=== PATIENT | male | born 1965 | race Caucasian/White ===

== ENCOUNTER 2019-03-05 23:36 | Inpatient (IN) | payer OTHER ==
[~2019-03-05] VITALS: Ht 172.7 cm; Wt 103.9 kg
[~2019-03-05 23:36] MED LIST: DIVA500T52 PO; METF-960 PO; OLAN15TA5 PO
[2019-03-06] MEDS ORDERED: IPRATROPIUM BROMIDE 0.5 MG/2.5 ML NEB SOLUTION NEB ONE (01:00)
[2019-03-06] MEDS ORDERED: ASPIRIN 325 MG TABLET PO ONE (01:00)
[2019-03-06] MEDS ORDERED: MethylPREDNISolone SOD SUCC 125 MG/2 ML VIAL IVP ONE (01:00)
[2019-03-06] MEDS ORDERED: ALBUTEROL SULFATE 2.5 MG/0.5 ML NEB SOLUTION NEB ONE (01:00)
[2019-03-06 01:18] LABS: ABG A-A DIFF O2 34.8 mmHg (10-20.0); ABG HCO3 29.4 mmol/L (22.0-26.0); ABG METHEMOGLOBIN 0.3 % (0.0-1.5); ABG OXYGEN CONTENT 18.1 mL/dL (15.0-23.0); ABG OXYGEN SATURATION 87.7 % (95.0-98.0); ABG OXYHEMOGLOBIN 74.6 % (94.0-100.0); ABG PCO2 57 mmHg (35-45); ABG PH 7.379 (7.35-7.450); ABG TOTAL HEMOGLOBIN 17.3 G/dL (12.0-18.0); PO2, ARTERIAL BG 46.2 mmHg (84.0-92.0); SOURCE, BLOOD GAS ARTERIAL; TEMPERATURE, FAHRENHEIT, BG 98.6 FAHREN (96.0-98.6)
[2019-03-06 01:19] LABS: ABG CARBOXYHEMOGLOBIN 14.6 % (0.0-1.5); O2 DEVICE,BLOOD GAS ROOM AIR (ROOM AIR); SITE, BLOOD GAS RT RADIAL
[2019-03-06 01:30] LABS: BASOPHILS % (AUTO) 0.5 % (0.0-2.0); EOSINOPHILS % (AUTO) 0.5 % (1.0-6.0); HEMATOCRIT 51.5 % (41-53); LYMPHOCYTES # (AUTO) 1.1 K/uL (1.0-4.8); MEAN CORPUSCULAR HEMOGLOBIN 30.5 pg (26.0-34.0); MEAN CORPUSCULAR HGB CONC 33.1 G/dL (31.0-37.0); MEAN CORPUSCULAR VOLUME 92 fL (80-100); MONOCYTES # (AUTO) 0.8 K/uL (0.1-1.0); MONOCYTES % (AUTO) 9.4 % (2.0-9.0); NEUTROPHILS # (AUTO) 6.6 K/uL (1.8-7.7); NEUTROPHILS % (AUTO) 76.6 % (40.0-70.0); PLATELET COUNT (AUTO) 230 K/uL (150-450); RED BLOOD CELL COUNT(AUTO) 5.58 MIL/uL (4.50-5.90); RED CELL DISTRIBUTION WIDTH 17.7 % (11.5-14.5)
[2019-03-06 01:39] LABS: ANION GAP 0 mmol/L (8-16); CALCIUM, TOTAL 8.8 mg/dL (8.8-10.5); CARBON DIOXIDE 37 mmol/L (22-29); CHLORIDE 94 mmol/L (98-107); GLOMERULAR FILTR. RATE CALC > 60 mL/min (>60); GLUCOSE,RANDOM 97 mg/dL (70-110); POTASSIUM 4.1 mmol/L (3.5-5.1); SODIUM SERUM 131 mmol/L (136-145); UREA NITROGEN, BLOOD 3 mg/dL (7-18)
[2019-03-06] MEDS ORDERED: 0.9% SODIUM CHLORIDE 5 ML NEB SOLUTION NEB ONE (01:40)
[2019-03-06 01:47] LABS: LACTIC ACID 0.7 mmol/L (0.4-2.0)
[2019-03-06 01:52] LABS: B-TYPE NATRIURETIC PEPTIDE 88 pg/mL (0-100)
[2019-03-06 01:53] LABS: ALANINE AMINOTRANSFERASE 8 U/L (12-78); ALBUMIN 3.4 g/dL (3.4-5.0); ALKALINE PHOSPHATASE 84 U/L (46-116); ASPARTATE AMINOTRANSFERASE 10 U/L (15-37); BILIRUBIN,TOTAL 0.6 mg/dL (0.1-1.0); TOTAL PROTEIN, SERUM 7.3 g/dL (6.4-8.2)
[2019-03-06] MEDS: IPRATROPIUM BROMIDE 0.5 MG/2.5 ML NEB SOLUTION NEB SCH ×5 (03:00→22:36)
[2019-03-06] MEDS ORDERED: ONDANSETRON HCL 4 MG/2 ML VIAL IVP PRN ×2 (03:00→19:30)
[2019-03-06] MEDS: ALBUTEROL SULFATE 2.5 MG/0.5 ML NEB SOLUTION NEB SCH ×5 (03:00→22:37)
[2019-03-06] MEDS ORDERED: AZITHROMYCIN 500 MG/NS 250 ML IV ONE (03:00)
[2019-03-06] MEDS ORDERED: ACETAMINOPHEN 325 MG TABLET PO PRN ×2 (03:00→19:30)
[2019-03-06] MEDS ORDERED: 0.9% SODIUM CHLORIDE 10 ML SYRINGE IVP PRN (03:00)
[2019-03-06] MEDS ORDERED: OXYGEN THERAPY IH SCH (08:00)
[2019-03-06 08:26] VITALS: BP 147/107
[2019-03-06 08:30] VITALS: BP 147/107
[2019-03-06 12:05] VITALS: BP 152/80
[2019-03-06 16:09] VITALS: BP 144/76
[2019-03-06] MEDS ORDERED: ALBUTEROL SULFATE 2.5 MG/0.5 ML NEB SOLUTION NEB PRN (19:30)
[2019-03-06] MEDS ORDERED: MAGNESIUM HYDROXIDE SUSPENSION 30 ML UDCUP PO PRN (19:30)
[2019-03-06] MEDS ORDERED: MORPHINE SULFATE 2 MG/ML SYRINGE IVP PRN (19:30)
[2019-03-06] MEDS ORDERED: IPRATROPIUM BROMIDE 0.5 MG/2.5 ML NEB SOLUTION NEB PRN (19:30)
[2019-03-06] MEDS ORDERED: OxyCODONE HCL/ACETAMINOPHEN 5-325 MG TABLET PO PRN (19:30)
[2019-03-06] MEDS ORDERED: BISACODYL 10 MG RECTAL RECTAL SUPPOSITORY PR PRN (19:30)
[2019-03-06] MEDS ORDERED: ZOLPIDEM TARTRATE 5 MG TABLET PO PRN (19:30)
[2019-03-06 19:31] VITALS: BP 145/67
[2019-03-06] MEDS ORDERED: DEXTROSE 50%-WATER 25 GM/50 ML SYRINGE IVP PRN (20:30)
[2019-03-06] MEDS: DOCUSATE SODIUM 100 MG CAPSULE PO SCH (21:00)
[2019-03-06] MEDS: DIVALPROEX SODIUM 500 MG ER TABLET PO SCH (21:12)
[2019-03-06] MEDS: OLANZapine 10 MG RAPDIS TABLET PO SCH (21:12)
[2019-03-06 23:52] VITALS: BP 126/76
[2019-03-07] MEDS: HEPARIN SODIUM,PORCINE 5,000 UNITS/ML VIAL SQ SCH ×3 (00:13→15:37)
[2019-03-07] MEDS: MethylPREDNISolone SOD SUCC 125 MG/2 ML VIAL IVP SCH ×4 (00:13→19:02)
[2019-03-07] MEDS: ALBUTEROL SULFATE 2.5 MG/0.5 ML NEB SOLUTION NEB SCH ×6 (02:47→22:31)
[2019-03-07] MEDS: IPRATROPIUM BROMIDE 0.5 MG/2.5 ML NEB SOLUTION NEB SCH ×6 (02:47→22:31)
[2019-03-07 04:52] VITALS: BP 129/85
[2019-03-07 07:47] VITALS: BP 138/94
[2019-03-07] MEDS: DOCUSATE SODIUM 100 MG CAPSULE PO SCH ×2 (08:29→20:44)
[2019-03-07] MEDS: OLANZapine 10 MG RAPDIS TABLET PO SCH ×2 (08:29→20:44)
[2019-03-07] MEDS: PANTOPRAZOLE SODIUM 40 MG DR TABLET PO SCH (08:29)
[2019-03-07 11:34] VITALS: BP 122/64
[2019-03-07 19:59] VITALS: BP 140/76
[2019-03-07] MEDS: DIVALPROEX SODIUM 500 MG ER TABLET PO SCH (20:44)
[2019-03-07 23:04] VITALS: BP 125/73
[2019-03-08] MEDS: HEPARIN SODIUM,PORCINE 5,000 UNITS/ML VIAL SQ SCH ×4 (00:34→23:28)
[2019-03-08] MEDS: MethylPREDNISolone SOD SUCC 125 MG/2 ML VIAL IVP SCH ×5 (00:34→23:28)
[2019-03-08] MEDS: ALBUTEROL SULFATE 2.5 MG/0.5 ML NEB SOLUTION NEB SCH ×6 (03:00→22:39)
[2019-03-08] MEDS: IPRATROPIUM BROMIDE 0.5 MG/2.5 ML NEB SOLUTION NEB SCH ×6 (03:00→22:39)
[2019-03-08 04:56] VITALS: BP 146/86
[2019-03-08 06:05] LABS: GLUCOMETER DEV NAME(LOC) 5S.1; GLUCOSE,POINT OF CARE 268 MG/DL (70-110)
[2019-03-08] MEDS ORDERED: DEXTROSE 50%-WATER 25 GM/50 ML SYRINGE IVP PRN (06:15)
[2019-03-08] MEDS: INSULIN LISPRO 100 UNITS/ML SQ PRN ×4 (06:32→21:08)
[2019-03-08] MEDS: DOCUSATE SODIUM 100 MG CAPSULE PO SCH ×2 (07:52→20:09)
[2019-03-08] MEDS: OLANZapine 10 MG RAPDIS TABLET PO SCH ×2 (07:52→20:08)
[2019-03-08] MEDS: PANTOPRAZOLE SODIUM 40 MG DR TABLET PO SCH (07:52)
[2019-03-08 08:06] VITALS: BP 142/85
[2019-03-08 12:01] VITALS: BP 140/78
[2019-03-08 12:19] LABS: GLUCOMETER DEV NAME(LOC) 5S.1; GLUCOSE,POINT OF CARE 351 MG/DL (70-110)
[2019-03-08 17:01] VITALS: BP 140/89
[2019-03-08 19:00] LABS: ANION GAP 3 mmol/L (8-16); CALCIUM, TOTAL 8.6 mg/dL (8.8-10.5); CARBON DIOXIDE 34 mmol/L (22-29); CHLORIDE 92 mmol/L (98-107); CREATININE 0.82 mg/dL (0.60-1.30); GLOMERULAR FILTR. RATE CALC > 60 mL/min (>60); GLUCOSE,RANDOM 289 mg/dL (70-110); POTASSIUM 4.7 mmol/L (3.5-5.1); SODIUM SERUM 129 mmol/L (136-145); UREA NITROGEN, BLOOD 18 mg/dL (7-18)
[2019-03-08 19:06] LABS: ALANINE AMINOTRANSFERASE 9 U/L (12-78); ALBUMIN 2.9 g/dL (3.4-5.0); ALKALINE PHOSPHATASE 65 U/L (46-116); ASPARTATE AMINOTRANSFERASE 7 U/L (15-37); BILIRUBIN,TOTAL 0.5 mg/dL (0.1-1.0); TOTAL PROTEIN, SERUM 6.4 g/dL (6.4-8.2)
[2019-03-08 19:34] VITALS: BP 146/88
[2019-03-08] MEDS: DIVALPROEX SODIUM 500 MG ER TABLET PO SCH (20:09)
[2019-03-09 00:29] VITALS: BP 131/79
[2019-03-09] MEDS: IPRATROPIUM BROMIDE 0.5 MG/2.5 ML NEB SOLUTION NEB SCH ×4 (02:43→14:47)
[2019-03-09] MEDS: ALBUTEROL SULFATE 2.5 MG/0.5 ML NEB SOLUTION NEB SCH ×4 (02:43→14:47)
[2019-03-09 03:50] VITALS: BP 131/94
[2019-03-09 05:19] LABS: GLUCOMETER DEV NAME(LOC) 5N.1; GLUCOSE,POINT OF CARE 269 MG/DL (70-110)
[2019-03-09] MEDS: INSULIN LISPRO 100 UNITS/ML SQ PRN ×2 (05:31→11:34)
[2019-03-09] MEDS: MethylPREDNISolone SOD SUCC 125 MG/2 ML VIAL IVP SCH ×2 (05:31→11:31)
[2019-03-09 05:32] LABS: BASOPHILS % (AUTO) 0.1 % (0.0-2.0); EOSINOPHILS % (AUTO) 0 % (1.0-6.0); HEMATOCRIT 51.5 % (41-53); HEMOGLOBIN 16.9 g/dL (13.5-17.5); LYMPHOCYTES # (AUTO) 0.4 K/uL (1.0-4.8); LYMPHOCYTES % (AUTO) 3.4 % (22.0-44.0); MEAN CORPUSCULAR HEMOGLOBIN 30.4 pg (26.0-34.0); MEAN CORPUSCULAR HGB CONC 32.9 G/dL (31.0-37.0); MEAN CORPUSCULAR VOLUME 93 fL (80-100); MONOCYTES # (AUTO) 0.4 K/uL (0.1-1.0); MONOCYTES % (AUTO) 3.1 % (2.0-9.0); NEUTROPHILS # (AUTO) 10.9 K/uL (1.8-7.7); PLATELET COUNT (AUTO) 252 K/uL (150-450); RED BLOOD CELL COUNT(AUTO) 5.56 MIL/uL (4.50-5.90); RED CELL DISTRIBUTION WIDTH 17.1 % (11.5-14.5)
[2019-03-09 05:34] LABS: NEUTROPHILS % (AUTO) 93.4 % (40.0-70.0)
[2019-03-09 07:34] VITALS: BP 129/82
[2019-03-09] MEDS: PANTOPRAZOLE SODIUM 40 MG DR TABLET PO SCH (07:45)
[2019-03-09] MEDS: HEPARIN SODIUM,PORCINE 5,000 UNITS/ML VIAL SQ SCH (07:45)
[2019-03-09] MEDS: DOCUSATE SODIUM 100 MG CAPSULE PO SCH (07:46)
[2019-03-09] MEDS: OLANZapine 10 MG RAPDIS TABLET PO SCH (07:46)
[2019-03-09 07:49] LABS: GLUCOMETER DEV NAME(LOC) 5S.1; GLUCOSE,POINT OF CARE 233 MG/DL (70-110)
[2019-03-09 07:49] LABS: GLUCOMETER DEV NAME(LOC) 5S.1; GLUCOSE,POINT OF CARE 355 MG/DL (70-110)
[2019-03-09 12:10] VITALS: BP 146/86
[2019-03-09 14:20] LABS: GLUCOMETER DEV NAME(LOC) 5N.1; GLUCOSE,POINT OF CARE 400 MG/DL (70-110)
[2019-03-09 15:08] VITALS: BP 132/80
== END 2019-03-09 16:40 | disposition home or self-care (01) | DRG 140 ==
LOC: EMS 23:39 → 5N 03-06 05:55
PROVIDERS: ADMIT Hospitalist; ATTEND Hospitalist
DX: J44.1 Chronic obstructive pulmonary disease with (acute) exacerbation (principal); E66.01 Morbid (severe) obesity due to excess calories; F20.0 Paranoid schizophrenia; E87.1 Hypo-osmolality and hyponatremia; E66.9 Obesity, unspecified; E11.9 Type 2 diabetes mellitus without complications; I10 Essential (primary) hypertension; F17.200 Nicotine dependence, unspecified, uncomplicated; Z68.34 Body mass index [BMI] 34.0-34.9, adult; Z88.8 Allergy status to other drugs, medicaments and biological substances; Z79.899 Other long term (current) drug therapy
CPT/HCPCS: 36600; 82805; 83605; 87040; 93005; 94640; 96365; 96372; 96375; G0378; G0480; J0456; J1644; J2930

== ENCOUNTER 2021-09-03 13:04 | Emergency (ER) | payer OTHER ==
[~2021-09-03] VITALS: Ht 172.7 cm; Wt 90.9 kg
[~2021-09-03 13:04] MED LIST changes: +ACET250T27 PO; +AUD NEB; +BUDE0.5A NEB; +CEFE2I IV; -DIVA500T52 PO; +DOCU-270 PO; +HEPA500018 SQ; +INSU100V SQ; +IPRNEB IH; +LACT30L PO; +LEVO750P7 IV; -METF-960 PO; +NACL1 PO; -OLAN15TA5 PO; +VALP250C48 PO; +[UNRECOGNIZED DRUG - CODE] IV; +[UNRECOGNIZED DRUG - CODE] IV
[2021-09-03 13:44] LABS: GLUCOMETER DEV NAME(LOC) ERT.5; GLUCOSE,POINT OF CARE 315 MG/DL (70-110)
[2021-09-03] MEDS ORDERED: SODIUM CHLORIDE 0.9% 1,000 ML IV ONE (14:45)
[2021-09-03] MEDS ORDERED: ONDANSETRON HCL 4 MG/2 ML VIAL IVP ONE (14:45)
[2021-09-03] MEDS ORDERED: INSULIN REGULAR, HUMAN 100 UNITS/ML IVP ONE (14:45)
[2021-09-03 14:55] LABS: BASOPHILS % (AUTO) 0.2 % (0.0-2.0); HEMATOCRIT 42.2 % (41-53); HEMOGLOBIN 14.4 g/dL (13.5-17.5); LYMPHOCYTES # (AUTO) 1.4 K/uL (1.0-4.8); LYMPHOCYTES % (AUTO) 16.3 % (22.0-44.0); MEAN CORPUSCULAR HEMOGLOBIN 31.2 pg (26.0-34.0); MEAN CORPUSCULAR HGB CONC 34.1 G/dL (31.0-37.0); MEAN CORPUSCULAR VOLUME 91 fL (80-100); MONOCYTES # (AUTO) 0.4 K/uL (0.1-1.0); MONOCYTES % (AUTO) 4.9 % (2.0-9.0); NEUTROPHILS # (AUTO) 6.7 K/uL (1.8-7.7); NEUTROPHILS % (AUTO) 77.6 % (40.0-70.0); PLATELET COUNT (AUTO) 325 K/uL (150-450); RED BLOOD CELL COUNT(AUTO) 4.62 MIL/uL (4.50-5.90); RED CELL DISTRIBUTION WIDTH 14.5 % (11.5-14.5)
[2021-09-03 14:57] LABS: ANION GAP 7 mmol/L (8-16); CALCIUM, TOTAL 8.8 mg/dL (8.8-10.5); CARBON DIOXIDE 30 mmol/L (22-29); CHLORIDE 95 mmol/L (98-107); CREATININE 0.79 mg/dL (0.60-1.30); GLOMERULAR FILTR. RATE CALC > 60 mL/min (>60); GLUCOSE,RANDOM 296 mg/dL (70-110); POTASSIUM 3.5 mmol/L (3.5-5.1); SODIUM SERUM 132 mmol/L (136-145); UREA NITROGEN, BLOOD 1 mg/dL (7-18)
[2021-09-03 15:04] LABS: ALANINE AMINOTRANSFERASE 24 U/L (12-78); ALBUMIN 3.6 g/dL (3.4-5.0); ALKALINE PHOSPHATASE 98 U/L (46-116); ASPARTATE AMINOTRANSFERASE 15 U/L (15-37); BILIRUBIN,TOTAL 0.2 mg/dL (0.1-1.0); TOTAL PROTEIN, SERUM 7.4 g/dL (6.4-8.2)
[2021-09-03 15:14] LABS: AMMONIA 30 umol/L (11-32)
[2021-09-03 15:15] LABS: TROPONIN I < 0.02 ng/mL (0.00-0.05)
[2021-09-03 15:16] LABS: B-TYPE NATRIURETIC PEPTIDE 136 pg/mL (0-100)
[2021-09-03 16:08] VITALS: BP 154/71
== END 2021-09-03 16:26 | disposition home or self-care (01) ==
LOC: EMS 13:08
DX: E11.65 Type 2 diabetes mellitus with hyperglycemia (principal); R53.1 Weakness; I10 Essential (primary) hypertension; F20.9 Schizophrenia, unspecified; I63.9 Cerebral infarction, unspecified; E66.9 Obesity, unspecified
CPT/HCPCS: 36415; 71045; 80053; 82140; 82962; 83880; 84484; 85025; 93005; 96361; 96374; 96375; 99285; G0480; J1815; J2405; J7030